=== PATIENT | female | born 1995 | race Caucasian/White ===

== ENCOUNTER 2017-06-07 15:36 | Emergency (ER) | payer OTHER ==
[~2017-06-07] VITALS: Ht 165.1 cm; Wt 57.0 kg
[2017-06-07 15:58] VITALS: BP 106/74; PULSE 91; RESP 16; O2SAT 99
--- NOTE | 2017-06-07 16:48 | ED.REPORT ---
HPI-Abd Pain F Under 40 Date of Service Jun 07, 2017 ED Provider: Doc,Ed MD History of Present Illness: 21-year-old female here for right lower quadrant abdominal pain 3 days. Nausea and dizziness on day 1. Nausea is minimal now. No known fever. Patient still has her appendix. No other known abdominal/pelvic diagnoses. She is otherwise healthy. Last menstrual period was one week ago. Denies vaginal discharge. Last intercourse was one years ago. Normal BM. Last ate noon today. Food did not make stomach pain better or worse. Nursing Notes Stated Complaint: ABD PAIN Chief Complaint: Female Abdominal Pain Nursing Notes Reviewed: Yes Allergies: Coded Allergies: No Known Allergies (Unverified , 06/07/17) General Time Seen by MD: 16:47 Chief Complaint Abdominal pain, Nausea Hx Obtained From: Patient Sudden in Onset?: Yes Onset Occurred: 3 days ago Symptom Duration: Constant Progression since Onset: Constant Location: : RLQ Severity: Current: Moderate Severity: Maximum: Moderate Recent Healthcare: No recent doctor visit Similar Sx Previous: No Past Medical History Past Medical History Notes: denies Review of Systems Constitutional: Reports: Fever, Denies: Chills, Fatigue Respiratory: Denies: Dyspnea on exertion Cardiovascular: Denies: Chest pain GI: Reports: Abdominal pain, Nausea Female: Denies: Dysuria, Pelvic pain, , Urinary frequency, Urinary urgency, Vaginal bleeding - abnl, Vaginal discharge Musculoskeletal: Denies: Back pain Complete sys rev & neg: except as marked. Physical Exam Initial Vital Signs Vital Signs (First) Date Time Temp Pulse Resp B/P Pulse Ox O2 Delivery O2 Flow Rate FiO2 06/07/17 15:58 37.2 91 16 106/74 99 Room Air Initial VS: Reviewed, Vital signs normal General/Constitutional: Awake, Alert, No acute distress, Well appearing Respiratory / Chest: Breath sounds NL, Breath sounds = bilat, No respiratory distress, No rales, No rhonchi, No wheezing Cardiovascular: Heart rate NL, Regular rhythm, Heart sounds NL, Peripheral circulation NL Abdomen: Atraumatic, Soft, No guarding, No rebound, BS normoactive, No distention, No hernia, No palpable mass, No pulsatile mass Tenderness/Guarding/Rebound: Positive: McBurney's point tender, Rebound localized, Tender RLQ... (Moderate) pain with walking/jumping in RLQ Head / Eyes: Normocephalic, PERRL Female Genitourinary: Atraumatic, External genitalia NL, No bleeding, No discharge, No foreign body, No adnexal mass, No adnexal tenderness, No uterine enlargement Mild discomfort with exam. no unusual d/c. canal and cervix were pink/moist, no signs of infections. No cervical motion tenderness. Interpretation & Diagnostics Interpretation & Diagnostics: ROCEDURE: US PELVIC SONOGRAM INDICATIONS: RLQ pain TECHNIQUE: Real-time scanning was performed of the pelvic organs, with image documentation. Additional endovaginal scanning was necessary due to incomplete visualization of the adnexal and endometrial structures by transabdominal scanning. COMPARISON: None. FINDINGS: Transabdominal scanning: Limited scanning through the kidneys shows no hydronephrosis. No pathologic free abdominal or pelvic fluid. Endovaginal scanning: Uterus: Uterus is normal in size at 6.3 x 4.5 x 2.8 cm. The endometrium measures 1.8 mm in combined thickness. Ovaries: The right ovary measures 21 x 22 x 22 mm. The left ovary measures 25 x 24 x 17 mm. Both ovaries have follicles with a dominant cyst on the left. Miscellaneous graded compression was used in the right lower quadrant of the abdomen. The appendix is not identified. No inflammatory mass or loculated fluid is seen. IMPRESSION: 1. Normal uterus and ovaries. 2. An appendix is not identified. Appendicitis is not ruled out. No inflammatory mass or fluid is appreciated in the area. Lab Results Interpretation Result Diagram: 06/07/17 1708 06/07/17 1708 Test 06/07/17 17:08 06/07/17 17:15 06/07/17 17:35 White Blood Count 8.0th/mm3 (3.8-10.1) Red Blood Count 4.68mil/mm3 (3.90-5.20) Hemoglobin 13.1g/dL (12.0-15.6) Hematocrit 39.1% (35.0-46.0) Mean Corpuscular Volume 83.5fL (81-100) Mean Corpuscular Hemoglobin 28.0pg (27.0-35.0) Mean Corpuscular Hemoglobin Concent 33.5% (32.0-37.0) Red Cell Distribution Width 12.7% (12.3-15.4) Platelet Count 226bil/L (150-400) Neutrophils (%) (Auto) 71.8% (40-74) Lymphocytes (%) (Auto) 18.1% (14-46) Monocytes (%) (Auto) 8.6% (4-12) Eosinophils (%) (Auto) 0.9% (0-5) Basophils (%) (Auto) 0.5% (0-3) Sodium Level 138mEq/L (134-144) Potassium Level 4.0mEq/L (3.5-5.2) Chloride Level 98mEq/L (97-108) Carbon Dioxide Level 24mmol/L (18-29) Blood Urea Nitrogen 10mg/dL (6-20) Creatinine 0.67mg/dL (0.57-1.00) Estimat Glomerular Filtration Rate 159mL/min (>59) Glucose Level 75mg/dL (60-99) Calcium Level 9.3mg/dL (8.5-10.1) Magnesium Level 1.9mg/dL (1.6-2.6) Total Bilirubin 0.5mg/dL (0.0-1.2) Aspartate Amino Transf (AST/SGOT) 14U/L (0-50) Alanine Aminotransferase (ALT/SGPT) 12U/L (0-32) Alkaline Phosphatase 59U/L (25-150) Total Protein 7.7g/dL (6.4-8.4) Albumin 4.4g/dL (3.4-5.0) Lipase 20U/L (13-60) Hold Moseley Top Tube Received (Received) Hold Urine Received (Received) Lab Results Interpretation: Wet mount did not show any abnormalities. UA RBC only Re-Eval/Medical Decision Med Decision/Clinical Course Med Decision/Clinical Course: 1999-reevaluation of patient. Still right lower quadrant tenderness and mild rebound tenderness pain 8 out of 10.. Discussed This case with Dr. Oden. examine patient as well. Ordered a CT scan. Pelvic ultrasound was negative, did not visualize the appendix. [id number]- signed out to Dr Oden, to assume care. pt taking PO contrast without difficulty. I saw the patient with the BIOPHYSICS TEACHER Lata Cheng. CT demonstrates no acute abnormality that would account for her pain at this time. Unclear etiology, US not c/w infection, torsion, etc. Upon reassessment, somewhat improved. Had a cramp in her hand after CT, resolved and intact neurovascular exam. Given above , reasonable to d/c home w/ very careful return precautions, f/u in 24 hours if pain persists for reexam. Discussed that could be early appendicitis and not yet showing on CT. Patient agreeable, verbalized understanding. Counseled Regarding: Diagnosis, Lab results, Need for follow-up, When/why to return to ED Discharge & Departure Shift Change Sign-Out Laboratory Evaluation: Lab evaluation discussed Imaging Studies: Imaging discussed Procedures: Results discussed Response to Therapy: Improved Primary Impression: Right lower quadrant abdominal pain Disposition: Home Discharge Condition All VS Reviewed: Yes Condition: Improved Patient Instructions: Acute Abdominal Pain (ED) Additional Instructions: Return to ER in 24 hours if pain persists or further workup.. Return immediately if you gets fevers, vomiting or worsening condition. Otherwise rest , push fluids, light diet as tolerated starting with water and advancing to crackers and brothy soups as tolerated. you may use 600mg ibuprofen every 8 hours or Tylenol 1 g every 8 hours as needed for pain. Referrals: [facility] (PCP) [facility] Provider for APC: Geronimo Oden MD Attending Statment I saw the patient with the BIOPHYSICS TEACHER. I agree with the plan and findings as documented above. 21F w/ abdominal pain, rebound tenderness. TVUS w/ no evidence of torsion. No discharge. CT and plan as per above. copies to: Geronimo Oden MD, Linnea [facility] Jun 07, 2017 16:48 Geronimo Oden MD Jun 07, 2017 20:15
[2017-06-07] MEDS ORDERED: 0.9% Sodium Chloride 1,000 ML IV ONE (16:58)
[2017-06-07 17:22] LABS: BASOPHILS % (AUTO) 0.5 % (0-3); EOSINOPHILS % (AUTO) 0.9 % (0-5); MONOCYTES % (AUTO) 8.6 % (4-12); Mean Corpuscular Volume 83.5 fL (81-100); NEUTROPHILS % (AUTO) 71.8 % (40-74); Platelet Count 226 bil/L (150-400)
[2017-06-07 17:39] LABS: Magnesium 1.9 mg/dL (1.6-2.6)
[2017-06-07 17:52] VITALS: BP 149/102; PULSE 117; RESP 16; O2SAT 97
--- NOTE | 2017-06-07 19:24 | DRSVH ---
PROCEDURE: US PELVIC SONOGRAM INDICATIONS: RLQ pain TECHNIQUE: Real-time scanning was performed of the pelvic organs, with image documentation. Additional endovagi nal scanning was necessary due to incomplete visualization of the adnexal and endometrial structures by transabdominal scanning. COMPARISON: None. FINDINGS: Transabdominal scanning: Limited scanning through the kidneys shows no hydronephrosis. No pathologi c free abdominal or pelvic fluid. Endovaginal scanning: Uterus: Uterus is normal in size at 6.3 x 4.5 x 2.8 cm. The endometrium measures 1.8 mm in combined thickness. Ovaries: The right ovary measures 21 x 22 x 22 mm. The left ovary measures 25 x 24 x 17 mm. Both ovar ies have follicles with a dominant cyst on the left. Miscellaneous graded compression was used in the right lower quadrant of the abdomen. The appendix is not identified. No inflammatory mass or loculated fluid is seen. IMPRESSION: 1. Normal uterus and ovaries. 2. An appendix is not identified. Appendicitis is not ruled out. No inflammatory mass or fluid is josef reciated in the area. Dictated by: Hardeep Whiting M.D. on 06/07/2017 at 19:20 Approved by: Hardeep Whiting M.D. on 06/07/2017 at 19:22
[2017-06-07] MEDS ORDERED: Iohexol 300 mg/mL 30 mL Inj PO ONE (20:35)
--- NOTE | 2017-06-07 21:55 | DRSVH ---
PROCEDURE: CT ABDOMEN AND PELVIS WITH CONTRAST ([id number]) INDICATIONS: RLQ pain TECHNIQUE: After the administration of oral and intravenous contrast, 5 mm thick sections acquired from the diap hragms to the symphysis. 5 mm thick coronal and sagittal reformats were performed. For radiation do se reduction, the following was used: automated exposure control, adjustment of mA and/or kV accordi ng to patient size. COMPARISON: [facility], US, US PELVIC, 06/07/2017, 18:30. FINDINGS: Image quality: Good. ABDOMEN: Lung bases: Lung bases are clear. Heart size is normal. Solid organs: Liver and spleen are normal in size and enhancement. Gallbladder is considered within normal limits. Biliary system is non-dilated. Pancreas enhances normally. No adrenal nodules. Ki dneys are normal in size and enhancement, without hydronephrosis. Peritoneum and bowel: Stomach, small bowel, and colon loops are normal in caliber and wall thickness . There is a small amount of free fluid in the cul-de-sac, MR considered physiologic.. An appendix i s not definitely identified. There is no inflammatory mass or abnormal fluid collection larger defect identified in the right lower quadrant. There are scattered lymph nodes suggesting mesenteric lympha denitis. Nodes and vessels: No retroperitoneal or mesenteric adenopathy. Aorta and inferior vena cava are no rmal in caliber. Miscellaneous: No ventral hernias. PELVIS: Genitourinary: Bladder wall thickness is normal. Ovaries are grossly normal with follicular type cys ts. Miscellaneous: No inguinal hernias or adenopathy. Bones: No suspicious bony lesions. No vertebral body compression fractures. IMPRESSION: Appendix cannot be specifically identified. No inflammatory mass is seen. Mesenteric lymp h nodes are slightly prominent in the right lower quadrant suggesting mesenteric and Gallbladder, right kidney and right ovary are considered within normal limits and unlikely to be a so urce of pain. Dictated by: Hardeep Whiting M.D. on 06/07/2017 at 21:45 Approved by: Hardeep Whiting M.D. on 06/07/2017 at 21:52
[2017-06-07 22:15] VITALS: BP 101/63; PULSE 89; RESP 16; O2SAT 98
[2017-06-07] MEDS ORDERED: _HYDROcodone/APAP 5-325 mg Tablet PO PRN (22:40)
[2017-06-07] MEDS ORDERED: HYDROcodone-APAP 5-325 mg Tablet PO ONE (22:40)
[2017-06-07] MEDS ORDERED: Ondansetron 2 mg/mL 2 mL Inj ONE (22:44)
[2017-06-07] MEDS ORDERED: Ondansetron 2 mg/mL 2 mL Inj IVPUSH ONE (22:45)
[2017-06-07 23:08] VITALS: BP 101/63; PULSE 89; RESP 16; O2SAT 98
== END 2017-06-07 23:09 | disposition home or self-care (01) ==
LOC: SED 15:36
DX: R10.31 Right lower quadrant pain (principal); R11.0 Nausea; R42 Dizziness and giddiness
CPT/HCPCS: 36415; 74177; 76856; 80053; 81025; 83690; 83735; 85025; 87210; 87491; 87591; 96361; 96374; 99285; J2405; J7030; Q9967